=== PATIENT | female | born 2005 | race African-American/Black ===

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

== ENCOUNTER 2024-02-27 06:32 | Emergency (ER) | payer BC, SELFPAY ==
--- NOTE | ~2024-02-27 | US_ITS ---
EXAMINATION: US pelvic complete w TV DATE: 02/27/2024 08:26 INDICATION: Left adnexal and suprapubic pain TECHNIQUE: Multiple transabdominal and endovaginal sonographic images of the pelvis were obtained. COMPARISON: None. FINDINGS: The uterus measures 7.8 x 2.9 x 4.9 cm. The endometrial complex measures 1 mm in thickness. The righ t ovary measures 4.6 x 3.0 x 3.3 cm. The left ovary measures 3.9 x 2.4 x 3.0 cm. There is normal vasc ular flow in the ovaries. There is no free fluid in the pelvis. IMPRESSION: 1. Normal pelvic ultrasound. Reviewed, dictated and finalized at location A.
[2024-02-27 06:32] VITALS: BP 110/74; PULSE 74; RESP 15; TEMP 36.4; O2SAT 100
[2024-02-27 06:44] LABS: BEDSIDEPREGUCG Negative (Negative)
[2024-02-27 06:47] LABS: Basophils Percent Auto 0.6 % (0.2-1.2); Eosinophils Percent Auto 0.4 % (0-4.4); Hematocrit 39.4 % (37.0-47.0); Hemoglobin 13.5 g/dL (12.0-15.0); Immature Granulocyte Absolute 0.01 K/mm3 (0.00-0.031); Immature Granulocyte Percent A 0.1 % (0-0.5); Lymphocytes Absolute Auto 3.29 K/mm3 (0.9-3.2); Lymphocytes Percent Auto 46.5 % (18.3-44.2); Mean Corpuscular HGB Conc 34.3 g/dl (32-36); Mean Corpuscular Hemoglobin 31.3 pg (26-34); Mean Corpuscular Volume 91.2 fl (80-100); Mean Platelet Volume 9.5 fl (7.4-10.4); Monocytes Absolute Auto 0.5 K/mm3 (0.1-0.6); Monocytes Percent Auto 7.6 % (2.6-8.5); Neutrophils Absolute Auto 3.2 K/mm3 (1.3-6.7); Neutrophils Percent Auto 44.8 % (45.5-73.1); Platelet Count Result 278 k/mm3 (150-375); Red Blood Count 4.32 M/mm3 (4.2-5.4); Red Cell Distribution Width 12.5 % (11.5-14.5); White Blood Count 7.1 K/mm3 (4.5-10.0)
[2024-02-27 06:50] LABS: Add Urine Microscopic? NO; Appearance Urine Clear (Clear); Bilirubin Urine Negative (Negative); Blood Urine Negative (Negative); Color Urine Yellow (Yellow); Glucose Urine UA Negative (Negative); Ketones Urine 1+ mg/dL (Negative); Leukocyte Esterase Ur Negative LEU/UL (Negative); Nitrate Urine Negative (Negative); Protein Urine Negative (Negative); Specific Grav Ur 1.021 (1.001-1.035)
[2024-02-27 06:57] LABS: Alanine Aminotransferase 11 U/L (6-35); Albumin Level 4.4 g/dL (3.7-5.6); Alkaline Phosphatase 94 U/L (45-116); Anion Gap 10 mmol/L (4-12); Aspartate Amino Transferase 19 U/L (14-36); Bilirubin,Total 0.8 mg/dL (0.2-1.3); Blood Urea Nitrogen 11 mg/dL (8-21); Calcium 9.5 mg/dL (8.9-10.7); Carbon Dioxide 19 mmol/L (22-30); Chloride 108 mmol/L (98-107); Estimated CRCL calculation 120 ml/min; Estimated Glomerular Filt Rate > 60; Glucose 81 mg/dL (65-110); Lipase 60 U/L (23-300); Potassium 3.7 mmol/L (3.4-5.0); Sodium 137 mmol/L (134-143)
[2024-02-27] MEDS: KETOROLAC 15 MG/ML VIAL (*BKC) IV PUSH (07:29)
--- NOTE | 2024-02-27 07:47 | ED.ABDPAIN ---
HPI - Abdominal Pain General Chief Complaint: Abdominal Pain Stated Complaint: lower abd pain, vag bleed Time Seen by Provider: 02/27/24 06:59 Source: patient Mode of arrival: ambulatory Limitations: no limitations History of Present Illness HPI narrative: This is a 18-year-old female, , last menstrual period of January 08, 2024, who presents to the emergency department complaining lower abdominal cramping/?twisting? pain rated 8/10 in the abdomen and vaginal bleeding beginning last night. The patient states she will to have a bowel movement and noticed vaginal passage of blood and tissue in the toilet. Patient states the cramping comes and goes and has had continued spotting. She has no other complaints at this time. Related Data Allergies Allergy/AdvReac Type Severity Reaction Status Date / Time No Known Allergies Allergy Verified 10/19/22 16:38 Review of Systems Review of Systems: All systems reviewed & are unremarkable except as noted in HPI and below PMFSH Past Medical History Medical History (Updated 02/27/24 @ 09:07 by Deshaun Dow MD) Patient denies medical problems Surgical History Surgical History (Updated 02/27/24 @ 07:50 by Deshaun Dow MD) History of Social History Social History Smoking status: Never smoker Substance use type: marijuana Other substance usage details: daily marijuana use Exam Narrative: GENERAL: Well-developed, well-nourished, and in no acute distress. HEAD: Normocephalic, atraumatic. EYES: PERRLA and EOMI. CHEST: Clear to auscultation. No respiratory distress. No wheezes rales or rhonchi HEART: Regular rate and rhythm. No murmur heard. Normal peripheral pulses. ABDOMEN: Soft, suprapubic and left lower quadrant abdominal tenderness to palpation, nondistended, normal active bowel sounds. No CVA tenderness (chaperoned by female RN Julian): Normal external female genitalia. On speculum exam, the cervical os appears open with a small amount of dark red discharge. There is cervical motion and left adnexal tenderness to palpation on bimanual exam EXTREMITIES: Normal range of motion. No edema. SKIN: Warm, dry, no rash. NEURO: Alert and oriented x3. No focal deficit. Moving all 4 limbs spontaneously PSYCH: Normal mood and affect. Course Course Emergency Course: 07:15 - Bedside ultrasound negative for obvious intrauterine and negative for free fluid in the abdomen. 09:05 - CBC unremarkable. Chemistries within normal limits. Per urine test negative. UA not concerning for UTI. Ultrasound not concerning for torsion or other acute pelvic abnormality. Given the patient's exam and symptoms, concern for upper inflammatory disease. Will treat with Rocephin and discharged with doxycycline metronidazole. I discussed the findings and recommendations with the patient. Discussed return and emergency precautions including signs/symptoms of acute abdomen and intractable vomiting. The patient voiced understanding and agreement with the plan. All questions answered to her satisfaction. Vital Signs Vital signs: Vital Signs Temperature 97.6 F 02/27/24 06:32 Pulse Rate 74 02/27/24 06:32 Respiratory Rate 15 02/27/24 06:32 Blood Pressure 110/74 02/27/24 06:32 Pulse Oximetry 100 02/27/24 06:32 Oxygen Delivery Room Air 02/27/24 06:32 Temperature 97.9 F 02/27/24 09:32 Pulse Rate 75 02/27/24 09:32 Respiratory Rate 16 02/27/24 09:32 Blood Pressure 118/68 02/27/24 09:32 Pulse Oximetry 100 02/27/24 09:32 Oxygen Delivery Room Air 02/27/24 06:32 MDM - Abdominal Pain MDM Narrative Medical decision making narrative: Plan: Labs, imaging, pain control, test, reassess Differential Diagnosis Differential diagnosis: Likely other (Miscarriage, ectopic , PID, GC chlamydia, UTI, coagulopathy, other) Lab Data 02/27/24 06:40
[2024-02-27] MEDS: cefTRIAXone 1 GM VIAL 0.5 GM IM (09:25)
[2024-02-27] MEDS: LIDOCAINE HCL 1% LOCAL INJ 10 ML VIAL 2.1 ML XX (09:25)
[2024-02-27 09:32] VITALS: BP 118/68; PULSE 75; RESP 16; TEMP 36.6; O2SAT 100
[2024-02-27 10:44] LABS: Chlamydia trachomatis NOT DETECTED (NOT DETECTE); Neisseria gonorrhoeae PCR NOT DETECTED (NOT DETECTE)
[2024-02-27 13:21] LABS: Trichomonas Vag PCR NOT DETECTED (NOT DETECTE)
== END 2024-02-27 09:35 | disposition home or self-care (01) ==
PROVIDERS: Emergency Medicine; Emergency Provider Preventive Medicine Aerospace Medicine
DX: N73.9 Female pelvic inflammatory disease, unspecified (principal); N93.9 Abnormal uterine and vaginal bleeding, unspecified
CPT/HCPCS: 36415; 76830; 76856; 80053; 81003; 81025; 83690; 85025; 87491; 87591; 87661; 96372; 96374; 99284; J0696; J1885; J2003

== ENCOUNTER 2024-06-27 12:16 | Emergency (ER) | payer BC, SELFPAY ==
--- NOTE | ~2024-06-27 | XR_ITS ---
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 RESULT: Lines, tubes, and devices: None. Lungs and pleura: Clear. Cardiomediastinal silhouette: Normal. Other: No acute osseous or upper abdominal finding. IMPRESSION: No acute cardiopulmonary process. Reviewed, dictated and finalized at location K. R REEL OPERATOR
[2024-06-27 12:33] VITALS: BP 112/64; PULSE 122; RESP 17; TEMP 36.7; O2SAT 98
--- NOTE | 2024-06-27 13:19 | ED_ITS ---
HPI - Nausea/Vomiting/Diarrhea General Chief complaint: Nausea/Vomiting/Diarrhea Stated complaint: n/v x 2days Focused HPI: this is a 18-year-old female who arrives to the ED via EMS for chief complaint of N/ V/ D x2 days. Unsure of as her last period was over a month ago. Past surgical history of GENERAL: Well-appearing, well-nourished, and in no acute distress. HEAD: Normocephalic, atraumatic. CHEST: Clear to auscultation. No respiratory distress. HEART: Regular rate and rhythm. ABD: Soft, non tender. NEURO: Alert and oriented x3. Patient screened in triage and initial orders placed. Additional care and disposition to be based upon diagnostic testing and treatment. Source: patient Mode of arrival: EMS Limitations: no limitations Related Data Allergies Allergy/AdvReac Type Severity Reaction Status Date / Time No Known Allergies Allergy Verified 10/19/22 16:38 COUNT INCLUDES THE [facility] Past Medical History Medical History (Updated 06/27/24 @ 18:06 by Jemal Godinez PA-C) Patient denies medical problems Surgical History Surgical History (Updated 02/27/24 @ 07:50 by Deshaun Dow MD) History of Social History Social History Smoking status: Never smoker Substance use type: marijuana Other substance usage details: daily marijuana use Course Vital Signs Vital signs: Vital Signs Temperature 98.1 F 06/27/24 12:33 Pulse Rate 122 H 06/27/24 12:33 Respiratory Rate 17 06/27/24 12:33 Blood Pressure 112/64 06/27/24 12:33 Pulse Oximetry 98 06/27/24 12:33 Temperature 98.1 F 06/27/24 12:33 Pulse Rate 122 H 06/27/24 12:33 Respiratory Rate 17 06/27/24 12:33 Blood Pressure 112/64 06/27/24 12:33 Pulse Oximetry 98 06/27/24 12:33 MDM - Nausea/Vomiting/Diarrhea MDM Narrative Medical decision making narrative: Patient eloped from the ED after medical screening exam before obtaining lab work or treatment for the nausea. She was notified that her urine test was positive. Lab Data 06/27/24 13:33 06/27/24 13:33 Labs: Lab Results 06/27/24 06/27/24 Range/Units 13:32 13:33 WBC 10.2 H (4.5-10.0) K/mm3 RBC 4.44 (4.2-5.4) M/mm3 Hgb 13.7 (12.0-15.0) g/dL Hct 39.4 (37.0-47.0) % MCV 88.7 (80-100) fl MCH 30.9 (26-34) pg MCHC 34.8 (32-36) g/dl RDW 12.2 (11.5-14.5) % Plt Count 299 (150-375) k/mm3 MPV 10.0 (7.4-10.4) fl Immature Gran % (Auto) 0.3 (0-0.5) % Neut % (Auto) 81.5 H (45.5-73.1) % Lymph % (Auto) 10.7 L (18.3-44.2) % [place] % (Auto) 7.4 (2.6-8.5) % Eos % (Auto) 0.0 (0-4.4) % Baso % (Auto) 0.1 L (0.2-1.2) % Lymph # (Auto) 1.09 (0.9-3.2) K/mm3 [place] # (Auto) 0.8 H (0.1-0.6) K/mm3 Eos # (Auto) 0.0 (0-0.3) K/mm3 Baso # (Auto) 0.0 (0.0-0.1) K/mm3 Abs Immat Gran (auto) 0.03 (0.00-0.031) K/mm3 Absolute Neuts (auto) 8.3 H (1.3-6.7) K/mm3 Absolute Nucleated RBC 0.000 (0.0-0.012) K/mm3 Nucleated RBC % 0.0 (0.0-0.2) % Sodium 133 L (134-143) mmol/L Potassium 3.4 (3.4-5.0) mmol/L Chloride 93 L (98-107) mmol/L Carbon Dioxide 24 (22-30) mmol/L Anion Gap 16 H (4-12) mmol/L BUN 12 (8-21) mg/dL Creatinine 0.77 (0.7-1.0) mg/dL Estim Creat Clear Calc 101 ml/min Estimated GFR > 60 (59 - ) Glucose 108 (65-110) mg/dL Calcium 10.1 (8.9-10.7) mg/dL Magnesium 1.9 (1.6-2.3) mg/dL Total Bilirubin 2.1 H (0.2-1.3) mg/dL AST 21 (14-36) U/L ALT 14 (6-35) U/L Alkaline Phosphatase 94 (45-116) U/L Total Protein 8.0 (6.3-8.6) g/dL Albumin 5.1 (3.7-5.6) g/dL Lipase 32 (23-300) U/L Beta HCG, Quant 86760.00 mIU/ML Urine Color Yellow (Yellow) Urine Appearance Clear (Clear) Urine pH 6.0 (5.0-9.0) Ur Specific [address] 1.029 (1.001-1.035) Urine Protein 1+ H (Negative) mg/dL Urine Glucose (UA) Negative (Negative) mg/dL Urine Ketones 3+ H (Negative) mg/dL Ur Blood (Man) Negative (Negative) Urine Nitrate Negative (Negative) Urine Bilirubin Negative (Negative) Urine Urobilinogen 1.0 (<2.0) mg/dL Leukocyte Esterase Rfl Negative (Negative) [place]ELCHOR/UL Urine RBC 0-2 (0-2) /hpf Urine WBC 0-5 (0-3) /hpf Ur Squamous Epith Cells Occasional (Few) /hpf Urine Bacteria None seen /hpf Urine Casts 0-2 POC Urine HCG, Qual Positive (Negative) Influenza A (RT-PCR) Negative (Negative) Influenza B (RT-PCR) Negative (Negative) RSV (RT-PCR) Negative (Negative) SARS-CoV-2 RNA (RT-PCR) Negative (Negative) Discharge Plan Discharge Clinical Impression: Nausea & vomiting, Positive urine test Patient Disposition: Elopement After Seen by Prov Condition: Stable Patient Language: French Prescriptions: No Action promethazine 25 mg suppository 25 mg RECTAL Q6H PRN (Reason: nausea and vomiting) Qty: 12 0RF doxycycline hyclate 100 mg tablet 100 mg PO Q12H 14 Days Qty: 28 0RF metronidazole 500 mg tablet 500 mg PO Q12H 14 Days Qty: 28 0RF ondansetron 4 mg tablet,disintegrating 4 mg PO Q8H PRN (Reason: nausea and vomiting) Qty: 12 0RF Follow-up/Referrals: PHYSICIAN,EXECUTOR OF ESTATE [Primary Care Provider] -
[2024-06-27 13:34] LABS: BEDSIDEPREGUCG Positive (Negative)
[2024-06-27 13:50] LABS: Add Urine Microscopic? YES; Appearance Urine Clear (Clear); Bacteria Urine None Seen /hpf; Bilirubin Urine Negative (Negative); Blood Urine Negative (Negative); Color Urine Yellow (Yellow); Glucose Urine UA Negative (Negative); Ketones Urine 3+ mg/dL (Negative); Leukocyte Esterase Ur Negative LEU/UL (Negative); Nitrate Urine Negative (Negative); Non Pathogenic Casts 0-2; Protein Urine 1+ mg/dL (Negative); RBC Urine 0-2 /hpf (0-2); Specific Grav Ur 1.029 (1.001-1.035); Squamous Epithelial Cell Urine Occasional /hpf (Few); WBC Urine 0-5 /hpf (0-3)
[2024-06-27 13:53] LABS: Magnesium 1.9 mg/dL (1.6-2.3)
[2024-06-27 13:54] LABS: Alanine Aminotransferase 14 U/L (6-35); Albumin Level 5.1 g/dL (3.7-5.6); Alkaline Phosphatase 94 U/L (45-116); Anion Gap 16 mmol/L (4-12); Aspartate Amino Transferase 21 U/L (14-36); Bilirubin,Total 2.1 mg/dL (0.2-1.3); Blood Urea Nitrogen 12 mg/dL (8-21); Calcium 10.1 mg/dL (8.9-10.7); Carbon Dioxide 24 mmol/L (22-30); Chloride 93 mmol/L (98-107); Estimated CRCL calculation 101 ml/min; Estimated Glomerular Filt Rate > 60; Glucose 108 mg/dL (65-110); Lipase 32 U/L (23-300); Potassium 3.4 mmol/L (3.4-5.0); Sodium 133 mmol/L (134-143)
[2024-06-27 14:21] LABS: Basophils Percent Auto 0.1 % (0.2-1.2); Hematocrit 39.4 % (37.0-47.0); Hemoglobin 13.7 g/dL (12.0-15.0); Immature Granulocyte Absolute 0.03 K/mm3 (0.00-0.031); Immature Granulocyte Percent A 0.3 % (0-0.5); Lymphocytes Absolute Auto 1.09 K/mm3 (0.9-3.2); Lymphocytes Percent Auto 10.7 % (18.3-44.2); Mean Corpuscular HGB Conc 34.8 g/dl (32-36); Mean Corpuscular Hemoglobin 30.9 pg (26-34); Mean Corpuscular Volume 88.7 fl (80-100); Monocytes Absolute Auto 0.8 K/mm3 (0.1-0.6); Monocytes Percent Auto 7.4 % (2.6-8.5); Neutrophils Absolute Auto 8.3 K/mm3 (1.3-6.7); Neutrophils Percent Auto 81.5 % (45.5-73.1); Platelet Count Result 299 k/mm3 (150-375); Red Blood Count 4.44 M/mm3 (4.2-5.4); Red Cell Distribution Width 12.2 % (11.5-14.5); White Blood Count 10.2 K/mm3 (4.5-10.0)
[2024-06-27 14:23] LABS: Influenza A QL RT-PCR Negative (Negative); Influenza B QL RT-PCR Negative (Negative); RSV RNA, RT-PCR Negative (Negative); SARS-CoV-2 RNA PCR Negative (Negative)
--- NOTE | 2024-06-27 16:05 | PC.NURSE ---
Patient not found in lobby when called for.
--- NOTE | 2024-06-27 16:09 | PC.NURSE ---
Phone number in patient chart called. Phone rang once with no answer. [facility] called and informed patient eloped with IV in arm. Dispatch to send officer out to patient's address.
== END 2024-06-27 19:26 | disposition left against medical advice (07) ==
PROVIDERS: Emergency Provider Physician Assistant
DX: O21.9 Vomiting of pregnancy, unspecified (principal); Z20.822 Contact with and (suspected) exposure to COVID-19; Z3A.00 Weeks of gestation of pregnancy not specified
CPT/HCPCS: 36415; 71045; 80053; 81001; 81025; 83690; 83735; 84702; 85025; 87637; 99283